=== PATIENT | female | born 1975 | race Caucasian/White ===

== ENCOUNTER 2017-11-30 10:21 | Outpatient (CLI) | payer OTHER | END 2017-11-30 10:22 | disposition home or self-care (01) | LOC: BICMAMMO 10:21 | PROVIDERS: ATTEND Family Medicine | DX: Z13.820 Encounter for screening for osteoporosis (principal); M51.34 Other intervertebral disc degeneration, thoracic region | CPT/HCPCS: 77080 ==

== ENCOUNTER 2018-07-07 08:27 | Outpatient (CLI) | payer OTHER ==
--- NOTE | 2018-07-07 11:01 | MRI ---
MRI BRAIN WITHOUT CONTRAST: HISTORY: TIA. Multiple sclerosis. FINDINGS: No restricted diffusion is seen. No evidence of infarct, hemorrhage, midline shift, or abnormal extr aaxial fluid collections is identified. No tonsillar herniation is seen. The ventricular size is no rmal, and the basilar cisterns are patent. There are a few foci of T2 prolongation in the periventri cular white matter, consistent with the history of multiple sclerosis. Absence of IV contrast reduce s the sensitivity of the exam to evaluate for activity of demyelinating plaques. There is fluid in t he mastoid air cells. IMPRESSION: 1. White matter changes, consistent with history of multiple sclerosis. 2. No evidence of acute intracranial process. POS: C
== END 2018-07-07 08:28 | disposition home or self-care (01) ==
LOC: SCSMRI 08:27
PROVIDERS: ATTEND Family Medicine
DX: G35 Multiple sclerosis (principal); G45.9 Transient cerebral ischemic attack, unspecified
CPT/HCPCS: 70551

== ENCOUNTER 2019-06-01 13:23 | Outpatient (CLI) | payer OTHER ==
--- NOTE | 2019-06-01 13:50 | RAD ---
LEFT HUMERUS TWO VIEWS: 06/01/19 HISTORY: Fall, left arm pain. FINDINGS/IMPRESSION: The left humerus is intact. POS: OFF
--- NOTE | 2019-06-01 13:51 | RAD ---
LEFT ELBOW FOUR VIEWS: 06/01/19 HISTORY: Fall, left elbow pain. FINDINGS/IMPRESSION: No acute fracture or dislocation is seen. POS: OFF
--- NOTE | 2019-06-01 13:52 | RAD ---
LEFT FOREARM TWO VIEWS: 06/01/19 HISTORY: Fall, left forearm pain. FINDINGS/IMPRESSION: The left radius and ulna are intact. POS: OFF
== END 2019-06-01 13:24 | disposition home or self-care (01) ==
LOC: BICRAD 13:23
PROVIDERS: ATTEND Family Medicine
DX: M25.522 Pain in left elbow (principal); M79.602 Pain in left arm; Z91.81 History of falling

== ENCOUNTER 2019-06-14 09:02 | Outpatient (CLI) | payer OTHER ==
--- NOTE | 2019-06-14 10:40 | MRI ---
MRI LEFT UPPER EXTREMITY OF FOREARM INCLUDING ELBOW: Date: 06/14/19 HISTORY: Left elbow and arm pain. History of injury from a fall 5 weeks ago, with pain and weakness. FINDINGS: There is fairly extensive abnormal high signal involving the undersurface and interstitial region of the common extensor tendon insertion. Evidence for high grade partial thickness tear with some minima l adjacent edema. The ulnar collateral ligament is unremarkable. Lateral collateral ligament complex appears intact. No significant abnormal marrow signal. No acute osteochondral defect. The radius and ulna marrow signal appears intact and unremarkable. No evidence for intramuscular mass or abnormal fl uid collection within the forearm. Biceps and triceps tendon insertion regions are unremarkable. IMPRESSION: Abnormal signal associated with the common extensor tendon insertion region, evidence for fairly high grade partial thickness undersurface of interstitial tear. No evidence for abnormal marrow signal. N o significant abnormal marrow signal within the forearm. No evidence for abnormal muscle volume loss or findings of denervation. POS: TPC
== END 2019-06-14 09:03 | disposition home or self-care (01) ==
LOC: SCSMRI 09:02
PROVIDERS: ATTEND Family Medicine
DX: M25.522 Pain in left elbow (principal); M79.602 Pain in left arm; Z91.81 History of falling; S46.012A Strain of muscle(s) and tendon(s) of the rotator cuff of left shoulder, initial encounter

== ENCOUNTER 2020-04-25 13:09 | Outpatient (CLI) | payer OTHER | END 2020-04-25 13:10 | disposition home or self-care (01) | LOC: ULT 13:09 | PROVIDERS: ATTEND Family Medicine | DX: Z53.9 Procedure and treatment not carried out, unspecified reason (principal) | CPT/HCPCS: 93306 ==

== ENCOUNTER 2020-04-25 14:53 | Outpatient (CLI) | payer OTHER ==
--- NOTE | 2020-04-25 16:13 | MMO ---
Right Breast MAMMO Unilat Diag DDI RT+ZINA. CLINICAL HISTORY: Patient is 44 years old and is seen for additional evaluation requested at current screening. The patient has no family history of breast cancer. The patient has no personal history of cancer. VIEWS: The views performed were: right craniocaudal spot compression with tomosynthesis; right mediolateral with tomosynthesis; and right mediolateral spot compression with tomosynthesis. FILMS COMPARED: The present examination has been compared to prior imaging studies performed at [facility] on 04/12/2020, at [facility] on 05/29/2016 and 04/25/2020, and at [facility] on 07/18/2008. This study has been interpreted with the assistance of computer-aided detection. MAMMOGRAM FINDINGS: The nodule in the right upper outer breast is consistent with a lymph node (mammo and US) There are no suspicious masses, suspicious calcifications, or new areas of architectural distortion. IMPRESSION: THERE IS NO MAMMOGRAPHIC EVIDENCE OF MALIGNANCY. A ROUTINE FOLLOW-UP MAMMOGRAM IN 1 YEAR IS RECOMMENDED. THE RESULTS OF THIS EXAM WERE SENT TO THE PATIENT. ACR BI-RADS Category 2 - Benign finding MAMMOGRAPHY NOTE: 1. A negative mammogram report should not delay a biopsy if a dominant of clinically suspicious mass is present. 2. Approximately 10% to 15% of breast cancers are not detected by mammography. 3. Adenosis and dense breasts may obscure an underlying neoplasm. Reported by: MICHELLE PARKER MD Electonically Signed: [id number]
--- NOTE | 2020-04-25 16:14 | ULT ---
RIGHT BREAST ULTRASOUND: 04/25/20 HISTORY: Abnormal mammogram. FINDINGS: Correlation is made with mammograms of today and 04/09/20. Sonographic evaluation of the right upper outer breast demonstrates a well circumscribed hyperechoic nonshadowing nodule with an echogenic hilum with flow measuring 10 x 4 x 8 mm, consistent with a lymp h node and corresponding to the mammographic finding. IMPRESSION: BIRADS 2: Benign Finding(s) Routine annual screening mammography (for women over age 40).
== END 2020-04-25 14:54 | disposition home or self-care (01) ==
LOC: BICMAMMO 14:53
PROVIDERS: ATTEND Family Medicine
DX: R92.8 Other abnormal and inconclusive findings on diagnostic imaging of breast (principal); N63.10 Unspecified lump in the right breast, unspecified quadrant
CPT/HCPCS: G0279

== ENCOUNTER 2021-12-03 15:52 | Outpatient (CLI) | payer OTHER | END 2021-12-03 15:53 | disposition home or self-care (01) | LOC: ULT 15:52 | PROVIDERS: ATTEND Family Medicine | DX: M79.661 Pain in right lower leg (principal) ==